=== PATIENT | male | born 1995 | race Caucasian/White ===

== ENCOUNTER 2020-07-12 15:25 | Emergency (ER) | payer SELFPAY ==
[~2020-07-12] VITALS: Ht 167.6 cm; Wt 89.4 kg
[2020-07-12 15:25] VITALS: BP 152/77
[2020-07-12] MEDS ORDERED: LIDOCAINE MPF 1% 10 MG/ML VIAL INJ ONE (15:45)
[2020-07-12] MEDS ORDERED: LIDOCAINE MPF 1% 5 ML ONE (15:47)
--- NOTE | 2020-07-12 16:00 | NUR ---
24 YEAR OLD MALE COMPLAINS OF LACERATION TO RIGHT WRIST. PT STATES THAT HE WAS TRYING TO OPEN A BOX BUT ACCIDENTALLY SLIPPED AND CUT RIGHT WRIST WITH SWITCHBLADE. SITE IS OPEN WITH LIMITED BLEEDING THATS CONTROLLED. PT AOX4, BREATHING EVEN AND UNLABORED, SKIN WARM AND DRY. BED IN LOWEST POSITION, LOCKED, BED RAIL UPX1. PMH - DENIES ALLERGIES - NKA
[2020-07-12] MEDS ORDERED: BACITRACIN OINT 500 UNITS/GM PKT TP ONE ×2 (16:19→16:20)
--- NOTE | 2020-07-12 16:26 | NUR ---
APPLIED BACITRACIN TO PT LAC, PT LAC DRESSED WITH NON-ADHERENT PAD AND SECURED WITH MEDICAL TAPE.
[2020-07-12 16:30] VITALS: BP 140/80
--- NOTE | 2020-07-12 16:30 | NUR ---
Patient discharged with v/s stable. Written and verbal after care instructions given and explained. Patient verbalized understanding. Ambulatory with steady gait. All questions addressed prior to discharge. Advised to follow up with PMD in two days for wound check and 7 days for suture removal.
== END 2020-07-12 16:30 | disposition home or self-care (01) ==
LOC: EDBD 15:25 → MED 15:25
DX: S61.511A Laceration without foreign body of right wrist, initial encounter (principal); W45.8XXA Other foreign body or object entering through skin, initial encounter; Y93.89 Activity, other specified; Y92.89 Other specified places as the place of occurrence of the external cause; Y99.8 Other external cause status
CPT/HCPCS: 12001; 90471; 90715; 99283; J2001

== ENCOUNTER 2020-07-15 08:25 | Emergency (ER) | payer SELFPAY ==
[~2020-07-15] VITALS: Ht 167.6 cm; Wt 85.7 kg
[2020-07-15 08:29] VITALS: BP 139/89
[2020-07-15 08:40] VITALS: BP 139/89
== END 2020-07-15 08:40 | disposition home or self-care (01) ==
LOC: MED 08:25
DX: S61.511D Laceration without foreign body of right wrist, subsequent encounter (principal); F12.10 Cannabis abuse, uncomplicated; X58.XXXD Exposure to other specified factors, subsequent encounter; Z48.00 Encounter for change or removal of nonsurgical wound dressing
CPT/HCPCS: 99281

== ENCOUNTER 2020-07-23 08:04 | Emergency (ER) | payer MEDICAID ==
[~2020-07-23] VITALS: Ht 167.6 cm; Wt 86.2 kg
[2020-07-23 08:14] VITALS: BP 163/100
--- NOTE | 2020-07-23 08:20 | NUR ---
24 Y/O MALE BIB SELF FOR SUTURE REMOVAL ON RIGHT WRIST. PTHAD STITCHES PLACED AT [facility] 9 DAYS AGO. SITE APPEARS CLEAN, NO DRAINAGE NOTED, NO FOUL ODOR PRESENT, SURROUNDING SKIN INTACT, NORMAL COLOR, NORMAL TEMPERATURE. PT DENIES PAIN. AO4, BREATHING EVEN AND UNLABORED, SKIN WARM AND DRY. BED IN LOWEST POSITION, LOCKED, X1 SIDERAIL UP. PMH -ASTHMA NKA
--- NOTE | 2020-07-23 08:26 | NUR ---
GAILD PERFORMED SUTURE REMOVAL ON RIGHT WRIST. PT TOLERATED PROCEDURE WELL WITHOUT INCIDENT.
[2020-07-23 08:34] VITALS: BP 163/100
== END 2020-07-23 08:34 | disposition home or self-care (01) ==
LOC: MED 08:04
DX: S61.511D Laceration without foreign body of right wrist, subsequent encounter (principal); J45.909 Unspecified asthma, uncomplicated; X58.XXXD Exposure to other specified factors, subsequent encounter
CPT/HCPCS: 99281